=== PATIENT | male | born 1950 | race Caucasian/White ===

== ENCOUNTER → 2017-06-11 | Outpatient (CLI) | payer OTHER ==
--- NOTE | 2017-06-11 09:31 | US ---
EXAMINATION TYPE: US carotid duplex BILAT DATE OF EXAM: 06/11/2017 COMPARISON: NONE CLINICAL HISTORY: R09.89 Carotid Bruit. Pt states Dr heard carotid bruit left side EXAM MEASUREMENTS: RIGHT: Peak Systolic Velocity (PSV) cm/sec ----- Right CCA: 101.8 ----- Right ICA: 77.3 ----- Right ECA: 98.5 ICA/CCA ratio: 0.8 RIGHT: End Diastole cm/sec ----- Right CCA: 27.0 ----- Right ICA: 32.8 ----- Right ECA: 23.7 LEFT: Peak Systolic Velocity (PSV) cm/sec ----- Left CCA: 74.8 ----- Left ICA: 84.2 ----- Left ECA: 96.3 ICA/CCA ratio: 1.1 LEFT: End Diastole cm/sec ----- Left CCA: 18.0 ----- Left ICA: 28.1 ----- Left ECA: 27.0 VERTEBRALS (direction of flow): Right Vertebral: Antegrade Left Vertebral: Antegrade No elevated velocities, no significant stenosis seen IMPRESSION: I DO NOT SEE EVIDENCE OF A HEMODYNAMICALLY SIGNIFICANT STENOSIS IN EITHER CAROTID SYSTEM. Criteria for Assigning % of Stenosis / Diameter reduction (Estimation based on the indirect measurements of the internal carotid artery velocities (ICA PSV). 1. Normal (no stenosis)=ICA PSV < 125 cm/s: ratio < 2.0: ICA EDV<40 cm/s. 2. Less than 50% stenosis=ICA PSV < 125 cm/s: ratio < 2.0: ICA EDV<40 cm/s. 3. 50 to 69% stenosis=ICA PSV of 125 to 230 cm/s: ration 2.0 ? 4.0: ICA EDV 40-100 cm/s. 4. Greater than 70% stenosis to near occlusion= ICA PSV > 230 cm/s: ratio > 4.0: ICA EDV > 100 cm/s. 5. Near occlusion= ICA PSV velocities may be low or undetectable: variable ratio and ICA EDV. 6. Total occlusion=unable to detect flow.
== END | disposition home or self-care (01) ==
LOC: RADUSWWP 08:45
PROVIDERS: ATTEND Family Medicine
DX: R09.89 Other specified symptoms and signs involving the circulatory and respiratory systems (principal)
CPT/HCPCS: 93880

== ENCOUNTER → 2024-08-29 | Outpatient (CLI) | payer MEDICARE ==
--- NOTE | 2024-08-29 14:46 | CA ---
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[employer] Procedure CPT: Indication: I25.2 [place] ICD-9 Codes: Rhythm: Patient History: Cardiac Medications: AMILODIPINE Medications in past 24 hours: Contrast: N/A Stress Results Protocol: Rafa Total dose(mL): NA Exercise Duration (min:sec): 6:[address] Depression (mm): Angina Score: Rockwell Score: METS: 7.3 Resting HR: 80 Resting BP: 178 / 97 Peak HR: 137 Peak BP: 202 / 88 Max Predicted HR: 148 93 % Max Predicted HR Target HR: 126 Double Product: [id number] Stress Summary: BP Response: Reason for Termination: Reached target heart rate or work-load Cardiac Symptoms: NO SYMPTOMS ECG Analysis Resting ECG: Stress ECG: Arrhythmia: Echo Analysis Resting Echo: Peak Echo Analysis: MEASUREMENTS (Male/Female) Normal Values CONCLUSIONS Patient underwent exercise stress echo with a Rafa protocol treadmill stress test. Patient exercised into Stage 2 for a total of 6 minutes and 1 second reaching a total of 7.3 METS. Patient's maximum heart rate was 137 which represented 92% age- predicted maximum heart rate. Stress EKG portion: At baseline patient's EKG showed normal sinus rhythm, normal axis, no significant ST-T wave abnormality. At peak exercise, EKG showed mild nondiagnostic 0.[address] depressions in inferior and lateral leads. Stress echo portion: 2-D echocardiogram was performed in the parasternal long, personal short, apical 2 and apical four-chamber views at rest, peak exercise and in recovery. At baseline, echocardiogram showed left ventricular ejection fraction 55% without wall motion abnormalities. With peak exercise, echocardiogram shows improvement in left ventricular ejection fraction, increase contractility, decrease in left ventricular end systolic dimension without wall motion abnormalities consistent with a normal response to exercise. Conclusions: 1. Normal EKG and echo response to exercise without evidence of inducible ischemia. 2. Fair exercise capacity. Dr. Sal Ramsey DO (Electronically Signed) Final Date: 29 August 2024 14:45
== END | disposition home or self-care (01) ==
LOC: RADNMMAIN 08:30
PROVIDERS: ATTEND Family Medicine
DX: I25.2 Old myocardial infarction (principal)
CPT/HCPCS: 93351